=== PATIENT | male | born 1990 | race African-American/Black ===

== ENCOUNTER 2022-05-12 01:35 | Emergency (ER) | payer SELFPAY ==
[~2022-05-12] VITALS: Ht 182.9 cm; Wt 116.0 kg
[2022-05-12 01:46] VITALS: BP 143/86
== END 2022-05-12 06:08 | disposition left against medical advice (07) ==
LOC: ER 01:35
DX: Z53.21 Procedure and treatment not carried out due to patient leaving prior to being seen by health care provider (principal)